=== PATIENT | female | born 1940 | race Caucasian/White ===

== ENCOUNTER 2017-04-06 12:12 | Observation (INO) | payer MEDICARE, OTHER ==
--- NOTE | ~2017-04-06 | HP ---
History And Physical [address] [id number] [place]. [address] NAME: BRITTANY MCCORD : 42 STATUS : ADM Ernesto PAT#: [id number] AGE: 76 ADM/REG DATE : 04/06/17 MR#: [id number] REPORT SERV DATE: 04/06/17 DICTATED BY: VITA MAK DATE: 04/06/17 REPORT STATUS : Draft TRANSCRIBED BY: MODL DATE: 04/06/17 DATE OF ADMISSION: 04/06/2017 CHIEF COMPLAINT: Passed out. HISTORY OF PRESENT ILLNESS: Obtained from patient's family mainly as the patient does not remember exactly the event. The patient at baseline is a poor historian. Also, emergency room documents and past medical records available to us were thoroughly reviewed. According to the information available, the patient is a pleasant 76-year-old white woman with history of IPF as well as mild cognitive impairment, being seen and managed by Dr. Montaño of Neurology with apparently newly started Aricept with increased dose up to 10 mg, first increased dose yesterday the day prior to admission, who was brought into the emergency room by EMS because of a passing-out/syncopal episode. Apparently at 6 o'clock in the morning, the patient's heard a noise and then found the patient on the floor trying to open the door. The patient remembers that she was trying to open the door, but after that, she does not remember anything else. She was found on the floor with open eyes with "lost, staring in space" as per . The patient denied any particular pain. Denies any headache. Denies any head trauma. Denies any chest pain, palpitations, or diaphoresis. No signs of incontinence or seizure-like activity. There are no signs of postictal symptoms as the patient at that moment was awake and alert, even though she did not remember exactly what happened. There was no prodromal symptoms reported as well. Besides the Aricept, which was recently started after the weekend and then the first increased dose to 10 mg the night prior to admission, there are no new changes on her medications or medical management. The patient has been followed closely by cut off machine helper, Dr. Collins and by Dr. Montaño, Neurology with the above-mentioned recommendation for her medical problems. Upon arrival in the emergency room, the patient was denying any headache, any phono or photophobia, any chest pain, any palpitations. Her mental status and confusions at baseline with only mild loss of recent memory, but good otherwise memory and alert and oriented x3, pleasant. Occasionally complaining of pain in the right upper quadrant/lower chest, not confirmed by physical examination. Further investigation in the emergency room was mainly benign and unrevealing, and therefore, due to above presentation, the patient was referred to the Hospitalist Service for further management and evaluation. Please note that after the hospitalist got involved, the orthostatics vital signs were measured and checked, and the patient roughly two hours after being in the emergency room, was orthostatic with significant increase in pulse and decrease in blood pressure upon standing up. PAST MEDICAL HISTORY: As above. Significant for hypertension, significant for mild diastolic dysfunction with most recent 2D echo in October 2016 showing no significant change from prior 2D echo. The patient had a cardiovascular workup in May 2016 less than a year ago due to chest heaviness with apparent negative cardiac workup at that time by the cardiology service. History of idiopathic pulmonary fibrosis (IPF), followed up by Dr. Collins. The patient apparently very stable on Esbriet three times a day for more than two and a half years according to the patient and family. The patient is due for a repeat surveillance CT scan of the chest this month, 03/2017. History of fibromyalgia; history of GERD and mild hiatal hernia; history of chronic O2 supplementation at night; history of apparently mild cognitive impairment/dementia, likely Alzheimer type, just started on History And Physical [address] [address] NAME: BRITTANY MCCORD : 42 STATUS : ADM Ernesto PAT#: [id number] AGE: 76 ADM/REG DATE : 04/06/17 MR#: [id number] REPORT SERV DATE: 04/06/17 DICTATED BY: VITA MAK DATE: 04/06/17 REPORT STATUS : Draft TRANSCRIBED BY: MODMaggie DATE: 04/06/[address] Montaño, Neurology, over the last month; history of osteoarthritis, osteoporosis, and deconditioning; history of electrolyte abnormalities with reported history of low potassium and low magnesium in the past. PAST SURGICAL HISTORY: Significant for total knee replacement bilaterally [place] [address] Canales and hysterectomy. ALLERGIES: TO PENICILLIN AND LATEX. HOME MEDICATIONS: According to the list provided, the patient is supposed to take aspirin 81 mg p.o. daily. Note the patient took today 650 mg p.o. x1 prior to EMS arrival due to her symptoms. Aricept 10 mg p.o. at bedtime, dose increased as of yesterday. Caltrate with vitamin D 600 one tablet p.o. b.i.d., vitamin E 400 units p.o. daily, lisinopril 20 mg p.o. daily, vitamin B12 at 1000 mcg p.o. b.i.d., vitamin D 1000 units p.o. daily, Mag-Ox 400 mg p.o. daily, Carafate 1 g p.o. t.i.d. and 1 g p.o. at bedtime p.r.n., Cardizem CD 120 mg p.o. at bedtime, Ultram 50 mg p.o. b.i.d. p.r.n. pain, Danyell [id number], unknown dose one daily, and Esbriet (pirfenidone) 801 mg p.o. t.i.d. after meals, on the same dose for at least two and a half years as per family. SOCIAL HISTORY: The patient is , retired, lives with her in [place], [place]. Denies tobacco abuse. Denies alcohol abuse. Denies illicit or recreational drug abuse. FAMILY HISTORY: Significant for hypertension and coronary artery disease. REVIEW OF SYSTEMS: As per H and P, otherwise, negative in all review of systems. Please note, a comprehensive review of system was obtained and pertinent positives are included in the H and P. The patient had a workup recently done in the last month and half for possible gallbladder disease with an ultrasound done as an outpatient that showed mild gallbladder sludge but no gallstones or biliary duct dilations as well as followed up with Dr. Buck, general surgeon, a couple of weeks ago who had recommended just expectative management with no surgical intervention planned for the above the findings. PHYSICAL EXAMINATION: GENERAL: Pleasant, cooperant, in no acute distress presently. Denies any pain besides occasional right upper quadrant/right lower chest pain. VITAL SIGNS: Upon arrival in the emergency room, blood pressure 156/70, pulse 74, respiratory rate 16, temperature 98, oxygen saturation 96% in room air. Note, orthostatic vital sign changes unfortunately done about two hours later showed blood pressure 149/64 with a pulse of 66 lying down and blood pressure 129/64 with a pulse of 100 standing up. HEENT: With bilateral cataracts. External ocular movements intact. Throat, mild erythema. No exudate. NECK: Supple. No JVD. No bruits. No thyromegaly. No lymph nodes. LUNGS: Bilateral air entry with bibasilar dry crackles. No wheezing. Good airway movement. No reproducible chest pain by palpation. HEART: Positive S1, S2. Regular rate and rhythm. Positive soft mitral regurgitation History And Physical [address] [address] NAME: BRITTANY MCCORD : 42 STATUS : ADM Ernesto PAT#: [id number] AGE: 76 ADM/REG DATE : 04/06/17 MR#: [id number] REPORT SERV DATE: 04/06/17 DICTATED BY: VITA MAK DATE: 04/06/17 REPORT STATUS : Draft TRANSCRIBED BY: MODMaggie DATE: 04/06/17 murmur at the apex. Positive aortic sclerosis murmur. No rub. No gallop. PMI not displaced by palpation. ABDOMEN: Positive bowel sounds. Soft, obese, nontender, no guarding, no hepatosplenomegaly. There is no tenderness over the right upper quadrant. Cesar sign negative. EXTREMITIES: Decreased range of motion. Osteoarthritic changes. No clubbing. No cyanosis. Trace nonpitting edema in bilateral ankles. +2 pulses bilateral. No calf tenderness. NEUROLOGIC: Alert and oriented x3. Grossly nonfocal. Cranial nerves 2 through 12 grossly intact. Motor strength 5/5 symmetrical, bilateral. Deep tendon reflexes 2/2 symmetrical, bilateral. Mild ataxia and unsteadiness when standing up, but at baseline as per the patient and family. BACK: With decreased range of motion. No focal localized tenderness. No CVA tenderness. SKIN: No bruises, no rashes, no lacerations. SIGNIFICANT LABORATORY DATA: CT scan of the head/brain just ordered. Urinalysis not available, not done. Chest x-ray (personal reading) showed mild cardiomegaly, hiatal hernia, no acute infiltrate. White cell count 5.6, hemoglobin 13.7, platelet count 132. INR 1.1. Sodium 143, potassium 4.1, chloride 107, bicarb 30, BUN 10, creatinine 0.81, glucose 125. Calcium 10.1, magnesium 2.3. Troponin I less than 0.02. EKG (personal reading) showed normal sinus rhythm, 81 beats per minute. No acute ST elevation. Basically, a normal EKG with normal axis and intervals. ASSESSMENT AND PLAN AND PROBLEM LIST: The patient is a pleasant 76-year-old woman admitted with syncope after an unwitnessed fall at home. IMPRESSION: 1. Syncope, likely neurovascular etiology, possible secondary to medications with orthostatic hypotension. Still need to rule out transient ischemic attack and/or head trauma. For all the above, we are going to admit on the hospitalist service on the telemetry setting with neurologic checks as scheduled. We are going to obtain a CT scan of the head/brain upon leaving the emergency room. Continue to monitor vital signs with orthostatic vital signs measurements and provide gentle IV hydration. Continue to monitor CK and troponin I. Monitor EKG. The patient had a recent 2D echo, unchanged from several years ago as well. Therefore, we are not going to repeat a 2D echo at this moment. We are going to continue to manage clinically and hold Aricept at this moment. Possible contributing effect with her IPF medication (Esbriet), but taking into account, the patient has been very stable for two and a half years on this medication and has been without symptoms and with very good results, we are going to continue on the same dose at this moment. We are going to complete workup with bilateral carotid arterial Doppler ultrasound. 2. Neurologic and psychiatric problem:. a. Fibromyalgia. Continue p.r.n. pain medication. b. 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 We are going to obtain old records from Dr. Montaño, her neurologist, and hold Aricept for now. 3. Pulmonary:. History And Physical [address] [address] NAME: BRITTANY MCCORD : 42 STATUS : ADM Ernesto PAT#: [id number] AGE: 76 ADM/REG DATE : 04/06/17 MR#: [id number] REPORT SERV DATE: 04/06/17 DICTATED BY: VITA MAK DATE: 04/06/17 REPORT STATUS : Draft TRANSCRIBED BY: MODL DATE: 04/06/17 a. Pulmonary fibrosis and idiopathic pulmonary fibrosis. We are going to continue Esbriet for now. Provide bronchodilator p.r.n. shortness of breath. b. Nocturnal home oxygen dependent, on 2 L by nasal cannula, to be continued and provided as needed. 4. Cardiovascular:. a. Hypertension, essential type. b. Mild diastolic dysfunction. c. Orthostatic hypotension. We are going to continue medications for now including Cardizem and lisinopril. Gentle IV hydration and monitoring fluid status clinically. Check a BNP in the a.m. per baseline. Continue orthostatic vital signs measurements and evaluation. d. Gastroesophageal reflux disease and hiatal hernia. Continue Carafate for now. 5. Thrombocytopenia/low platelets, mild. Continue to monitor. No signs of bruises or bleeding at this moment. PROGNOSIS: Good for this admission. Discussed with the patient and patient's family present at bedside. Questions were answered in full. Please note, the patient is a full code at this moment as discussed with the patient and family at bedside. RF/HELEN Vita Mak M.D. / [id number] CC: Josue Szymanski IV, M.D. Sharon Farber, M.D. C. Samuel Ledford, M.D.
--- NOTE | ~2017-04-06 | DS ---
Discharge Summary [facility] [address] [place]. [address] NAME: BRITTANY MCCORD : 42 STATUS : DIS Ernesto PAT#: [id number] AGE: 76 ADM/REG DATE : 04/06/17 MR#: [id number] REPORT SERV DATE: 04/07/17 DICTATED BY: GAVINO COURTNEY DATE: 04/07/17 REPORT STATUS : Draft TRANSCRIBED BY: HELEN DATE: 04/07/17 ADMISSION DATE: 04/06/2017 DISCHARGE DATE: 04/07/2017 CONDITION ON DISCHARGE: Stable. DISPOSITION: Discharged to home. DIAGNOSES ON DISCHARGE: 1. Syncope, likely vasovagal, could have been also because of the patient being dehydrated from diarrhea and not having had anything to eat for several hours before she passed out. 2. Urinary tract infection-the patient has been treated with Levaquin while in the hospital. For this, she is being sent home to complete the course of Levaquin, and I have given her a prescription for Levaquin 500 mg once a day for the next five days to finish her course of antibiotic treatment for UTI. BRIEF HOSPITAL COURSE: Ms Mccord is a very pleasant 76-year-old female patient, who was admitted to the hospital with first time episode of syncope that was witnessed by her . The patient was essentially admitted for syncope workup. The patient does have history of hypertension, dementia and follows up on a regular basis with Dr. Montaño, the neurologist. Also has history of osteoarthritis, osteoporosis, deconditioning, and also history of fibromyalgia and being low in multiple electrolytes and vitamins for which she takes multiple electrolyte and vitamin supplements. Also, the patient has a diagnosis of mild diastolic dysfunction of the heart, but good ejection fraction per echocardiogram done in October 2016. The patient also has a history of idiopathic pulmonary fibrosis and she is being followed by Dr. Collins, but currently, she is doing really well on Esbriet three times a day for the pulmonary fibrosis itself. The patient also has a diagnoses of GERD and hiatal hernia, and currently, she is stable at this time. She does use oxygen supplementation at nighttime only for the IPF I understand, and for the IPF itself, she is also on Esbriet as mentioned. BRIEF HOSPITAL COURSE: She was admitted with the diagnosis of syncope as mentioned above and the following tests were done to rule out any cardiac cause or any neurogenic cause that were acutely responsible for the syncope. All through the hospital, essentially the patient remained completely asymptomatic, and on the day of discharge, she requests discharge, and hence, she is being discharged as per her request. She is not orthostatic anymore, and hence, we are resuming her regular home antihypertensives. So far the tests that have come back negative in this patient include a bilateral carotid ultrasound that came back with no significant carotid stenosis. The vertebral arteries exhibit normal antegrade flow. BNP was normal 47. Her CBC was normal also with WBC of 4.2, hemoglobin 14.3, hematocrit of 43.2, and platelet count of 131. Her renal function profile also showed completely normal Discharge Summary [address] [address] NAME: BRITTANY MCCORD : 42 STATUS : DIS Ernesto PAT#: [id number] AGE: 76 ADM/REG DATE : 04/06/17 MR#: [id number] REPORT SERV DATE: 04/07/17 DICTATED BY: GAVINO COURTNEY DATE: 04/07/17 REPORT STATUS : Draft TRANSCRIBED BY: HELEN DATE: 04/07/17 electrolytes, normal BUN and creatinine, CPK normal, CK-MB normal. Troponin I normal. LFTs normal. Her urinalysis, however, came back with evidence of a UTI as the patient was positive for large leukocyte esterase and nitrites. Her urine culture is pending at this time, but she seems to have responded to the ciprofloxacin that she got initially that was subsequently changed to Levaquin by Dr. Molina, and currently, she is asymptomatic with no dysuria or hematuria. Chest x-ray, PA and lateral view, came back with mild cardiomegaly, moderate- sized hiatal hernia, but otherwise, no other significant abnormalities. The patient also had a brain CT scan without contrast as part of workup of syncope which showed no acute intracranial abnormality, but atrophy and chronic microvascular white matter ischemic changes consistent with the diagnosis of probably mild Alzheimer's dementia that the patient already is diagnosed with. Hence, she is being sent home in stable condition with the following medications. All her home medications essentially will be resumed and these include the following. Aspirin 81 mg once a day, Aricept 10 mg once a day, lisinopril 20 mg once a day, sucralfate 1 g p.o. b.i.d., Cardizem CD 120 mg p.o. at bedtime, tramadol 50 mg p.o. b.i.d. p.r.n. for pain for fibromyalgia, and of course, Esbriet, as prescribed for the pulmonary fibrosis. She will be given a prescription for levofloxacin 500 mg once a day for the next five days only to complete a course of antibiotics for her UTI. I have spent about 35 minutes in coordinating discharge care of this patient including face- to-face encounter and summarizing this discharge. DICTATED BY: Josue Vuong/HELEN Gavino Courtney M.D. / [id number] CC: Josue Vuong RALPH EDWARD II Nathan Mull IV, M.D. Richard Scott Gusso, M.D. Sharon Farber, M.D.
[~2017-04-06 12:12] MED LIST: *UNABLE1; B12250T PO; CALTRAT600 PO; CARD120 PO; ESBRIET267C PO; KLOR-CON 1010 MEQ PO; LYRICA150 MG PO; MAGOX4 PO; NEUR300 PO; SUCR PO; ZESTORETIC1 TA1 PO; [UNRECOGNIZED DRUG - CODE] PO
[2017-04-06 12:21] LABS: BASOPHILS 0.2 %; BASOPHILS ABSOLUTE 0.01 10/3/uL (0.0-0.16); EOSINOPHILS 0.9 %; EOSINOPHILS ABSOLUTE 0.05 10/3/uL (0.0-0.53); HEMATOCRIT 39.9 % (36.0-48.0); HEMOGLOBIN 13.7 g/dL (12.0-16.0); IMMATURE GRANULOCYTES 0.2 %; IMMATURE GRANULOCYTES ABSOLUTE 0.01 10/3/uL (0.0-0.11); LYMPHOCYTES 12.2 %; LYMPHOCYTES ABSOLUTE 0.68 10/3/uL (0.67-4.30); MEAN CORPUS HGB CONC 34.3 g/dL (32.0-36.0); MEAN CORPUSCULAR HEMOGLOB 32.7 pg (26.0-34.0); MEAN CORPUSCULAR VOLUME 95.2 fL (80-100); MONOCYTES 7.4 %; MONOCYTES ABSOLUTE 0.41 10/3/uL (0.21-1.20); NEUTROPHILS 79.1 %; PLATELET COUNT 132 10/3/uL (150-400); RBC DISTRIBUTION WIDTH 12.7 % (12.0-16.0); RED CELL COUNT 4.19 10/6/uL (4.0-5.6); WHITE BLOOD CELLS 5.6 10/3/uL (4.5-10.5)
[2017-04-06 12:23] LABS: ER CBC TAT 0 Hrs 05 Mins; MANUAL DIFF NO %
[2017-04-06 12:32] LABS: INTERNATIONAL NORMAL RATI 1.1 UNITS (-); PARTIAL THROMBO TIME 27.7 SEC (22.5-37.2)
[2017-04-06 12:38] LABS: BUN (BLOOD UREA NITROGEN) 10 MG/DL (6-23); CALCIUM, SERUM 10.1 MG/DL (8.5-10.4); CHEST PAIN PROFILE TAT 0 Hrs 22 Mins; CHLORIDE, SERUM 107 MMOL/L (96-112); CO2 (CARBON DIOXIDE) 30 MMOL/L (24-34); CREATININE 0.81 MG/DL (0.55-1.02); GFR AFRICAN AMERICAN 82 ML/MIN (>=60); GFR NON AFRICAN AMERICAN 71 ML/MIN (>=60); GLUCOSE, SERUM 125 MG/DL (60-99); POTASSIUM, SERUM 4.1 MMOL/L (3.5-5.3); SODIUM, SERUM 143 MMOL/L (135-148); TROPONIN I <0.02 NG/ML (<0.05)
[2017-04-06] MEDS ORDERED: ASAB PO (14:34)
[2017-04-06] MEDS ORDERED: ASABAYER PO (14:37)
[2017-04-06] MEDS ORDERED: PRIN20 PO (14:38)
[2017-04-06] MEDS ORDERED: CALTRA600D PO (14:38)
[2017-04-06] MEDS ORDERED: CYANO1000T PO (14:38)
[2017-04-06] MEDS ORDERED: ARICEPT10 PO (14:38)
[2017-04-06] MEDS ORDERED: VITE PO (14:38)
[2017-04-06] MEDS ORDERED: VITAMIN D1000 UNI1 PO (14:39)
[2017-04-06] MEDS ORDERED: SUCR PO ×2 (14:39→14:40)
[2017-04-06] MEDS ORDERED: MAGOX4 PO (14:39)
[2017-04-06] MEDS ORDERED: CARDCD120 PO (14:40)
[2017-04-06] MEDS ORDERED: ULTRAM50 PO (14:41)
[2017-04-06] MEDS ORDERED: ALLEGRA PO (14:42)
[2017-04-06] MEDS ORDERED: ESBRIET267C PO (14:43)
[2017-04-06 18:16] LABS: CPK 135 U/L (0-200); FREE T4 0.89 NG/DL (0.76-1.46); PHOSPHORUS, SERUM 3.4 MG/DL (2.5-4.5); SGPT(ALT) 29 U/L (5-65)
[2017-04-06 19:04] LABS: CK-MB 2.4 NG/ML; DIRECT BILIRUBIN < 0.1 MG/DL (0.0-0.4); PROCALCITONIN <0.05 ng/mL (<0.5)
[2017-04-06 19:19] LABS: ALBUMIN 3.9 G/DL (3.5-5.0); TOTAL PROTEIN 7.7 G/DL (6.0-8.5)
[2017-04-06 19:23] LABS: ALKALINE PHOSPHATASE 110 U/L (45-117); INDIRECT BILIRUBIN(NOT ORDER) 0.2 MG/DL (0.1-0.9); SGOT(AST) 39 U/L (5-40); TOTAL BILIRUBIN 0.3 MG/DL (0-1.2)
[2017-04-06 22:17] LABS: TROPONIN I <0.02 NG/ML (<0.05)
[2017-04-06 22:18] LABS: CK-MB 2.2 NG/ML; CPK 109 U/L (0-200)
[2017-04-07 00:52] LABS: ASCORBIC ACID (UR NOT ORDER) NEG (NEG); BILIRUBIN, URINE NEGATIVE (NEG); KETONE, URINE NEGATIVE (NEG); LEUKOCYTE ESTERASE(NOT OR LARGE (NEG); WBC (NOT ORDERED) (RFLEX) 46 (0-5)
[2017-04-07 06:21] LABS: BASOPHILS 0.5 %; BASOPHILS ABSOLUTE 0.02 10/3/uL (0.0-0.16); EOSINOPHILS 4.6 %; EOSINOPHILS ABSOLUTE 0.19 10/3/uL (0.0-0.53); HEMATOCRIT 43.2 % (36.0-48.0); HEMOGLOBIN 14.3 g/dL (12.0-16.0); LYMPHOCYTES 27.3 %; LYMPHOCYTES ABSOLUTE 1.14 10/3/uL (0.67-4.30); MEAN CORPUS HGB CONC 33.1 g/dL (32.0-36.0); MEAN CORPUSCULAR HEMOGLOB 31.2 pg (26.0-34.0); MEAN CORPUSCULAR VOLUME 94.1 fL (80-100); MEAN PLATELET VOLUME 11.8 fL (9.2-13.0); MONOCYTES 9.8 %; MONOCYTES ABSOLUTE 0.41 10/3/uL (0.21-1.20); NEUTROPHILS 57.8 %; NEUTROPHILS ABSOLUTE 2.41 10/3/uL (2.02-8.40); PLATELET COUNT 131 10/3/uL (150-400); RBC DISTRIBUTION WIDTH 12.9 % (12.0-16.0); RED CELL COUNT 4.59 10/6/uL (4.0-5.6); WHITE BLOOD CELLS 4.2 10/3/uL (4.5-10.5)
[2017-04-07 06:25] LABS: MANUAL DIFF NO %
[2017-04-07 06:33] LABS: ALBUMIN 3.6 G/DL (3.5-5.0); BUN (BLOOD UREA NITROGEN) 8 MG/DL (6-23); CALCIUM, SERUM 9.4 MG/DL (8.5-10.4); CHLORIDE, SERUM 109 MMOL/L (96-112); CO2 (CARBON DIOXIDE) 28 MMOL/L (24-34); CPK 113 U/L (0-200); CREATININE 0.75 MG/DL (0.55-1.02); GFR AFRICAN AMERICAN 90 ML/MIN (>=60); GFR NON AFRICAN AMERICAN 78 ML/MIN (>=60); PHOSPHORUS, SERUM 3.9 MG/DL (2.5-4.5); POTASSIUM, SERUM 3.7 MMOL/L (3.5-5.3); SODIUM, SERUM 143 MMOL/L (135-148); TROPONIN I <0.02 NG/ML (<0.05)
[2017-04-07 06:34] LABS: CK-MB 1.7 NG/ML; GLUCOSE, SERUM 83 MG/DL (60-99)
[2017-04-07] MEDS ORDERED: LEVAQUIN5T PO (15:41)
== END 2017-04-07 16:34 | disposition home or self-care (01) ==
LOC: ER 12:12 → CDU1 14:55 → CDU2 16:47
PROVIDERS: Emergency Medicine; Internal Medicine
DX: R55 Syncope and collapse (principal); N39.0 Urinary tract infection, site not specified; I10 Essential (primary) hypertension; M79.7 Fibromyalgia; J84.10 Pulmonary fibrosis, unspecified; I95.9 Hypotension, unspecified; K21.9 Gastro-esophageal reflux disease without esophagitis; K44.9 Diaphragmatic hernia without obstruction or gangrene; D69.6 Thrombocytopenia, unspecified; W19.XXXA Unspecified fall, initial encounter; Y92.009 Unspecified place in unspecified non-institutional (private) residence as the place of occurrence of the external cause; Z88.0 Allergy status to penicillin; Z96.653 Presence of artificial knee joint, bilateral; Z90.710 Acquired absence of both cervix and uterus; Z82.49 Family history of ischemic heart disease and other diseases of the circulatory system; Z91.040 Latex allergy status; Z79.82 Long term (current) use of aspirin; Z79.52 Long term (current) use of systemic steroids; Z79.899 Other long term (current) drug therapy
CPT/HCPCS: 70450; 71020; 80048; 80069; 80076; 81001; 82550; 82553; 82962; 83735; 83880; 84100; 84145; 84439; 84443; 84481; 84484; 85025; 85610; 85730; 87077; 87086; 87186; 93005; 93880; 96372; 96374; 97161-GP; 99285; A9270-GY; G0378; G8978-CJ-GP; G8979-CJ-GP; G8980-CJ-GP